=== PATIENT | male | born 1990 | race Caucasian/White ===

== ENCOUNTER 2022-09-24 08:33 | Day surgery (SDC) | payer OTHER ==
[~2022-09-24] VITALS: Ht 175.3 cm; Wt 76.3 kg
[2022-09-24 09:42] LABS: BASO % 0.3 % (0.0-1.0); EOS % 0.3 % (0.0-3.0); HEMATOCRIT 44.5 % (42.0-52.0); HEMOGLOBIN 15.1 g/dl (13.5-17.5); LYMPH % 7.9 % (24.0-44.0); MEAN CORPUSCULAR HEMOGLOBIN 28.4 pg (27.0-33.0); MEAN CORPUSCULAR HGB CONC 33.9 g/dl (32.0-36.5); MEAN CORPUSCULAR VOLUME 83.8 fl (80.0-96.0); MONO % 7.4 % (2.0-8.0); NEUTROPHILS # 10.9 10^3/uL (1.5-8.5); NEUTROPHILS % 83.6 % (36.0-66.0); PLATELET COUNT, AUTOMATED 194 10^3/uL (150-450); RED BLOOD COUNT 5.31 10^6/uL (4.30-6.10); WHITE BLOOD COUNT 13.1 10^3/uL (4.0-10.0)
[2022-09-24] MEDS ORDERED: KETOROLAC 30 MG/ML 1ML VIAL IV ONE (09:45)
[2022-09-24] MEDS ORDERED: NS 1,000 ML IV SCH (09:45)
[2022-09-24 10:06] LABS: LIPASE 48 U/L (12-53)
[2022-09-24 10:08] LABS: ALBUMIN 4.3 G/DL (3.2-5.2); ALKALINE PHOSPHATASE 54 U/L (46-116); ALT/SGPT 19 U/L (7.0-40); AST/SGOT 23 U/L (<34); BILIRUBIN,DIRECT 0.5 MG/DL (<0.4); BILIRUBIN,TOTAL 1.6 MG/DL (0.3-1.2); BLOOD UREA NITROGEN 13 MG/DL (9-23); CALCIUM LEVEL 8.7 MG/DL (8.5-10.1); CARBON DIOXIDE LEVEL 29 MMOL/L (20-31); CHLORIDE LEVEL 102 MMOL/L (98-107); CREATININE FOR GFR 0.99 MG/DL (0.70-1.30); GLOMERULAR FILTRATION RATE > 60.0 (>60); GLUCOSE, FASTING 99 MG/DL (60-100); POTASSIUM SERUM 4.1 MMOL/L (3.5-5.1); SODIUM LEVEL 137 MMOL/L (136-145); TOTAL PROTEIN 7.9 G/DL (5.7-8.2)
[2022-09-24] MEDS ORDERED: ISOVUE-370 76% 100ML VIAL As Ordered ONE (10:11)
[2022-09-24] MEDS ORDERED: PIPERACILLIN/TAZOBACTAM SOD 3.375 GM in D5W MINI-BAG PLUS 50 ML IV ONE (11:10)
[2022-09-24 12:12] LABS: RSV AMPLIFICATION NEGATIVE (NEGATIVE)
[2022-09-24] MEDS ORDERED: ACETAMINOPHEN TAB 650MG DOSE (2X325MG) PO PRN (12:55)
[2022-09-24] MEDS: NS 1,000 ML IV SCH ×2 (12:55→16:34)
[2022-09-24] MEDS ORDERED: ONDANSETRON 4MG 2ML VIAL IV PRN ×2 (12:55→13:30)
[2022-09-24] MEDS ORDERED: HOME MED LIST COMPLETE! XX SCH (12:55)
[2022-09-24] MEDS ORDERED: HYDROMORPHONE HCL 0.5 MG/ 0.5 ML SYRINGE IV PRN (13:30)
[2022-09-24] MEDS ORDERED: oxyCODONE 5MG TAB PO PRN ×2 (13:30→23:45)
[2022-09-24] MEDS ORDERED: fentaNYL 100 MCG/2 ML INJECTION IV PRN ×2 (13:30→23:45)
[2022-09-24] MEDS ORDERED: LR 1,000 ML IV SCH ×2 (13:30→23:45)
[2022-09-24] MEDS ORDERED: ROCURONIUM BROMIDE 50MG/5ML VIAL As Ordered ONE (13:36)
[2022-09-24] MEDS ORDERED: SUGAMMADEX SODIUM 500 MG/5 ML VIAL (BRIDION) As Ordered ONE (13:36)
[2022-09-24] MEDS ORDERED: LIDOCAINE 2% 100MG/5ML SDV (FOR ANES.) As Ordered ONE (13:37)
[2022-09-24] MEDS ORDERED: propofoL 200 MG/20 ML VIAL As Ordered ONE ×2 (13:37→23:12)
[2022-09-24] MEDS ORDERED: ONDANSETRON 4MG 2ML VIAL As Ordered ONE (13:39)
[2022-09-24] MEDS ORDERED: KETOROLAC 60MG 2ML VIAL As Ordered ONE (13:39)
[2022-09-24] MEDS ORDERED: BUPIVACAINE/EPIN 0.25% 30ML VIAL As Ordered ONE (14:56)
[2022-09-24] MEDS: KETOROLAC 30 MG/ML 1ML VIAL IV PRN (17:16)
[2022-09-24] MEDS: PIPERACILLIN/TAZOBACTAM SOD 3.375 GM in D5W MINI-BAG PLUS 50 ML IV SCH (18:16)
[2022-09-24 20:44] VITALS: BP 107/59
[2022-09-24] MEDS: SENOKOT S TAB PO SCH (21:00)
[2022-09-24] MEDS ORDERED: MIDAZOLAM INJ 2MG/2ML VIAL As Ordered ONE (21:36)
[2022-09-24] MEDS ORDERED: fentaNYL 100 MCG/2 ML INJECTION As Ordered ONE (21:36)
[2022-09-24] MEDS ORDERED: PHENYLephrine 500MCG 5ML (100MCG/ML) SYRINGE As Ordered ONE (22:20)
[2022-09-24] MEDS ORDERED: MORPHINE 2 MG/ML 1ML VIAL IV PRN (23:45)
[2022-09-25] VITALS (9 sets, daily range): BP systolic 100–118; BP diastolic 56–67
[2022-09-25] MEDS: PIPERACILLIN/TAZOBACTAM SOD 3.375 GM in D5W MINI-BAG PLUS 50 ML IV SCH ×3 (00:54→11:49)
[2022-09-25] MEDS: NORCO, ANEXSIA 5/325MG TABLET (HYDROcodone/ACETAMINOPHEN) PO PRN ×2 (00:55→06:37)
[2022-09-25] MEDS: KETOROLAC 30 MG/ML 1ML VIAL IV PRN ×2 (06:12→13:17)
[2022-09-25] MEDS: NS 1,000 ML IV SCH ×2 (06:13→09:28)
[2022-09-25 07:13] LABS: HEMATOCRIT 39.9 % (42.0-52.0); HEMOGLOBIN 13.5 g/dl (13.5-17.5); MEAN CORPUSCULAR HEMOGLOBIN 28.8 pg (27.0-33.0); MEAN CORPUSCULAR HGB CONC 33.8 g/dl (32.0-36.5); MEAN CORPUSCULAR VOLUME 85.3 fl (80.0-96.0); PLATELET COUNT, AUTOMATED 175 10^3/uL (150-450); RED BLOOD COUNT 4.68 10^6/uL (4.30-6.10); WHITE BLOOD COUNT 11.5 10^3/uL (4.0-10.0)
[2022-09-25] MEDS: SENOKOT S TAB PO SCH (10:28)
[2022-09-25] MEDS ORDERED: NORCO, ANEXSIA 5/325MG TABLET (HYDROcodone/ACETAMINOPHEN) PO PRN (11:25)
[2022-09-25] MEDS ORDERED: AUGM12TA11 PO (13:12)
[2022-09-25] MEDS ORDERED: HYDR-3715 PO (13:20)
== END 2022-09-25 15:25 | disposition home or self-care (01) ==
LOC: M ED 08:33 → M SDC 12:54 → M PED 20:44 → M SDC 09-25 15:25
PROVIDERS: ATTEND Surgery
DX: K35.32 Acute appendicitis with perforation, localized peritonitis, and gangrene, without abscess (principal)
CPT/HCPCS: 36415; 44970; 74177; 76705; 80048; 80076; 81001; 83605; 83690; 85025; 85027; 87631; 88304; 96361; 96365; 96366; 96375; 96376; 99285; J1100; J1885; J2250; J2370; J2405; J2543; J3010; Q9967; S0020